=== PATIENT | male | born 1990 | race Caucasian/White ===

== ENCOUNTER → 2017-02-05 | Day surgery (SDC) | payer OTHER ==
[~2017-02-05] MED LIST: BUPIVACAINE 0.5% 30 ML SDV ONE; BUPIVACAINE/EPI 0.25% 30 ML SDV ONE; CEFAZOLIN 2 GM/DEXTROSE/100 ML BAG IV ONE; DEXAMETHASONE 4 MG/ML VIAL ONE; HYDROmorphONE/DILAUDID 1 MG/ML SYR IVP ONE; HYDROmorphONE/DILAUDID 2 MG/ML INJ ONE; LIDOCAINE 2% 100 MG/5 ML SYR ONE; MIDAZOLAM 2 MG/2 ML VIAL ONE; NS 1,000 ML IV ONE; ONDANSETRON 4 MG/2 ML VIAL ONE; OXYCODONE/APAP 5/325 TAB ONE; PROPOFOL 200 MG/20 ML VIAL ONE; ceFAZolin 2 GM/DEXTROSE 100 ML IV ONE; fentaNYL 100 MCG/2 ML INJ ONE
[2017-02-05 07:47] VITALS: BP 118/75; PULSE 75; RESP 16; TEMP 96.8; O2SAT 96
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
== END | disposition home or self-care (01) ==
LOC: FSGY 08:42
PROVIDERS: ATTEND Orthopaedic Surgery Hand Surgery
PROC: 0PS904Z Reposition Right Clavicle with Internal Fixation Device, Open Approach (ICD-10-PCS; principal; 2017-02-05 09:28)
DX: S42.001A Fracture of unspecified part of right clavicle, initial encounter for closed fracture (principal); V18.2XXA Unspecified pedal cyclist injured in noncollision transport accident in nontraffic accident, initial encounter
CPT/HCPCS: 96374; C1713; J0690; J1100; J1170; J2001; J2250; J2405; J2704; J3010